=== PATIENT | male | born 1990 | race Caucasian/White ===

== ENCOUNTER 2017-04-29 21:40 | Emergency (ER) | payer OTHER ==
[~2017-04-29] VITALS: Ht 172.7 cm; Wt 75.0 kg
[~2017-04-29 21:40] MED LIST: DICY10 PO; ZOFR4TAB3 SL
[2017-04-29 21:42] VITALS: BP 151/75; PULSE 73; RESP 17; TEMP 97.6; O2SAT 99
== END 2017-04-29 22:20 | disposition left against medical advice (07) ==
LOC: NED 21:40
DX: Z53.21 Procedure and treatment not carried out due to patient leaving prior to being seen by health care provider (principal)
CPT/HCPCS: 99281